=== PATIENT | female | born 1940 | race African-American/Black ===

== ENCOUNTER 2016-07-15 13:38 | Emergency (ER) | payer OTHER, BC ==
--- NOTE | 2016-07-15 15:56 | DIAGNOSTIC IMAGING REPORT ---
PROCEDURE: XR CHEST 2 VIEW INDICATION: COUGH TECHNIQUE: PA and lateral views. COMPARISON: None. 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 Lungs are clear. Heart and mediastinum are normal. Mild to moderate degenerative changes of the thoracic spine. IMPRESSION: 1. Negative chest.
--- NOTE | 2016-07-15 16:10 | DIAGNOSTIC IMAGING REPORT ---
PROCEDURE: XR HIP 2VW W W/O AP PELVIS-LT INDICATION: PAIN IN JOINT TECHNIQUE: AP view of the pelvis and hips with lateral view of the left hip. COMPARISON: None. FINDINGS: LEFT HIP: Osseous structures and joint spaces are normal. PELVIS: Osseous pelvis is normal. There is chondrocalcinosis of the symphysis pubis. Moderate degenerative changes of the lower lumbar spine. IMPRESSION: 1. Negative left hip. 2. Chondrocalcinosis of the symphysis pubis. While this may be normal, consider calcium pyrophosphate deposition disease (e.g., pseudogout). 3. Findings discussed with Dr. Zeus Larsen
--- NOTE | 2016-07-15 17:47 | ED ORDER SUMMARY ---
..... Patient: PEDRO SWANN OrderSheet [facility] VisitID: [id number] [address] [place] [address] 76y, F Registration Date/Time: 07/15/2016 ORDER SHEET Weight: 61.2 kg (stated) Allergies: No Known Drug Allergy GENERAL ORDERS: Chest 2V Urgent (14:37 07/15/2016 Cindy MERCEDES) (Ack 14:45 Cristin) (15:55 DDean R.N.) Hip 2V Left w AP Pelvis Urgent (14:38 07/15/2016 Cindy MERCEDES) (Ack 14:45 Cristin) (15:55 DDean R.N.) MEDICATION ORDERS: Clonidine PO 0.2 mg (NOW) (15:56 07/15/2016 Cindy MERCEDES) (15:59 DDean R.N.) Amoxicillin PO 500 mg (NOW) (20:59 07/15/2016 DDean R.N. per protocol) (21:00 DDean R.N.) IV FLUIDS: ORDER SHEET NOTES: [Electronically signed by Raysa Villalobos R.N. (21:05 07/15/2016)] [Electronically signed by Zeus Larsen MD (21:09 07/19/2016)] [Electronically locked/signed by Raysa Villalobos R.N. (21:05 07/15/2016)]
--- NOTE | 2016-07-15 17:47 | ED NURSING NOTES ---
Clinical Report - Nurses [facility] [address] [place] [address] 07/15/2016 13:45 Patient: PEDRO SWANN TRIAGE Triage time 1353. Acuity: LEVEL 3. Chief Complaint: SHORTNESS OF BREATH. --14:05 Rasya Villalobos R.N. 13:52 07/15/16. BP: 228/78. HR: 94. RR: 22. O2 saturation: 100%. Temp: 97.7 F. Pain level now: 0/10. Additional comments: 228/78 L, 205/73 R . --14:05 Raysa Villalobos R.N. Weight: 61.2 kg stated. Height/Length: 60 inches Per Patient. BMI: 26.4. --13:54 Raysa Villalobos R.N. Medications [facility] . --14:05 Raysa Villalobos R.N. HydrALAZINE HCl Oral (Tablet 25 mg) 1 tablet, QID pen BP . Lasix Oral 20 mg, daily. Losartan Potassium Oral 100 mg, daily. MetFORMIN HCl Oral 500 mg 1/2 tab , BiD. Naproxen Oral 500 mg, 2x a day. Premarin Oral 0.625 mg, daily. Simvastatin Oral 20 mg, at bedtime. --14:38 Raysa Villalobos R.N. Symbicort Inhalation (Aerosol 80-4.5 mcg/act) 1 puff BID . --14:38 Raysa Villalobos R.N. CloNIDine HCl Transdermal (Patch Weekly 0.3 mg/24hr), weekly. --14:38 Raysa Villalobos R.N. Glipizide Oral 2.5mg , am. --14:39 Raysa Villalobos R.N. Allergies No Known Drug Allergy. --14:01 Raysa Villalobos R.N. History Arrived by private vehicle. Historian: patient. Accompanied by family. 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 Onset. (1-2 weeks). She has had fever and a cough. ( had problems with vomiting and diarrhea last week . Pt also has left hip pain after sliding off of bed and landing on the floor last week. walking with limp). No chest pain. PAST MEDICAL HX: Hypertension. ( heart problems). SURGERY HX: Adenoidectomy. Had hysterectomy. Sinus surgery. Tonsillectomy. ( eye surgery recently left eye). SOCIAL HX: Never smoker. No alcohol use or drug use. --14:05 Raysa Villalobos R.N. Interventions ID band on patient. To treatment room. --14:05 Raysa Villalobos R.N. PHYSICAL ASSESSMENT 13:58. Ambulatory to room. Patient gowned. GENERAL / NEURO / PSYCH: Alert. Oriented X 4. Appears in no acute distress. ( left hip pain, but able to ambulate). RESPIRATORY: No respiratory distress. The patient can speak in full sentences. Cough. Chest nontender. CVS: Capillary refill less than 2 seconds. GI / : Abdomen soft. ( denies nausea or diarrhea recently). SKIN: Skin is warm and dry. --14:07 Raysa Villalobos R.N. NURSING PROGRESS NOTES 13:53. Patient gowned. Head of bed elevated. Reassurance given. Patient identifiers checked. Call light placed in reach. Side rails up. Bed placed in lowest position. Patient ready for evaluation- chart flagged. --14:05 Raysa Villalobos R.N. 14:45. Patient transported to radiology by stretcher with tech. --14:53 Raysa Villalobos R.N. 15:07 07/15/16. Patient returned from radiology by stretcher with tech. --15:07 Raysa Villalobos R.N. ( escorted pt to bathroom, steady on feet. no increase in resp with activity. Roderick well). --15:20 Raysa Villalobos R.N. 15:20 07/15/16. BP: 199/102. HR: 69. RR: 20. O2 saturation: 100% on room air. Temp: deferred. Pain level now: 5/10. Additional comments: hip pain . --15:27 Raysa Villalobos R.N. 15:57 07/15/2016 Clonidine PO Tablets 0.2 mg given. --15:59 Raysa Villalobos R.N. 15:59 07/15/16. BP: 214/69. HR: 73. RR: 18. O2 saturation: 98% on room air. Temp: deferred. Pain level now: 6/10. Additional comments: pain in neck bat base of skull . --16:02 Raysa Villalobos R.N. JOHNNIE COMA SCORE: Johnnie Coma Scale: 15- eyes open spontaneously (4); best verbal response- oriented x 4 (5); best motor response- obeys commands (6). --16:02 Raysa Villalobos R.N. 16:15. ( Pt given sandwich, resting quietly). --16:22 Raysa Villalobos R.N. 16:45 07/15/16. BP: 120/45. HR: 80. RR: 18. O2 saturation: 99% on room air. Temp: deferred. Pain level now: 2/10. Additional comments: resting quitly, states headache better. . --16:50 Raysa Villalobos R.N. 17:35 07/15/2016 Amoxicillin PO Capsules 500 mg given. Allergies verified and confirmed 5 rights. --21:00 Raysa Villalobos R.N. 17:20 pt getting dressed so she can sit with her in next room. --21:05 Raysa Villalobos R.N. DISPOSITION / DISCHARGE 17:35. Condition at departure: improved and stable. No learning barriers present. Discharge instructions provided and reviewed with the patient. Reviewed medication(s) (amoxicillin). Patient verbalized understanding. Written instructions provided in Czech. The patient was discharged home and accompanied by spouse. She left the Emergency Department ambulatory and via private vehicle. Patient driving. --21:03 Raysa Villalobos R.N. 17:45 07/15/16. BP: 126/62. HR: 78. RR: 18. O2 saturation: 100%. Temp: deferred. Pain level now: 0/10. --21:03 Raysa Villalobos R.N. Locked/Released at 07/15/2016 21:05 by WilfredoRaysa R.N.
--- NOTE | 2016-07-15 17:47 | ED CLINICAL REPORT ---
Clinical Report - Physicians/Mid Levels [facility] [address] [place] [address] 07/15/2016 13:45 Patient: PEDRO SWANN Time Seen: 14:11. Arrived- By private vehicle. Historian- patient. History limited by vague historian. HISTORY OF PRESENT ILLNESS Chief Complaint: "FLU". This started about 2 weeks ago and is still present. It was gradual in onset and has been constant and waxing/waning. The illness is described as moderate. The patient has had a cough, nasal congestion, chills, muscle aches and a nasal discharge. She has had scant amounts of thick, yellow sputum. No difficulty breathing, chest discomfort or pain, fever or sore throat. No hoarseness. Additional history - The patient has had contact with a sick spouse. They have had similar symptoms. REVIEW OF SYSTEMS The patient has had chills, muscle aches and fatigue. No fever, sweats, decreased vision, calf pain or chest pain. No pedal edema, palpitations, abdominal pain, constipation or diarrhea. No nausea, vomiting, urinary problems or headache. She says that her clonidine patches are normally changed on Sundays and she hasn't done it yet this week. All systems otherwise negative, except as recorded above. SOCIAL HISTORY Never smoker. No alcohol use or drug use. Resides in a house. She lives with spouse. Has good social support. FAMILY HISTORY Denies family medical history. ADDITIONAL NOTES The nursing notes have been reviewed. PHYSICAL EXAM Vital Signs: 07/15/2016 13:52 BP: 228/78. HR: 94. RR: 22. O2 saturation: 100%. Temp: 97.7 F. Pain level now: 0/10. Have been reviewed. Appearance: Alert. Eyes: Pupils equal, round and reactive to light. ENT: Ears normal. Nose normal. Pharynx normal. Uvula midline. Neck: Normal inspection. Neck supple. CVS: Normal heart rate and rhythm. Heart sounds normal. Respiratory: No respiratory distress. (rattle over large airways that clears with cough). Abdomen: Soft and nontender. No organomegaly. Back: Normal inspection. Skin: Skin warm and dry. Normal skin color. Normal skin turgor. Extremities: Extremities exhibit normal ROM. No calf tenderness. No lower extremity edema. LABS, X-RAYS, AND EKG Chest X-ray: No acute disease. The X-rays were interpreted by the radiologist and contemporaneously by me. Lt Hip X-ray: (IMPRESSION: 1. Negative left hip. 2. Chondrocalcinosis of the symphysis pubis. While this may be normal, consider calcium pyrophosphate deposition disease (e.g., pseudogout).). The X-rays were interpreted contemporaneously by me and discussed with the radiologist. PROGRESS AND PROCEDURES Course of Care: Patient is stable. Patient/family counseled. Old medical records ordered. Old records unavailable. Disposition: Discharged. Condition: stable. CLINICAL IMPRESSION Chronic left hip pain. Bronchitis. Hypertension. INSTRUCTIONS Drink plenty of fluids. Warnings: Further evaluation is necessary. GENERAL WARNINGS: Return or contact your physician immediately if your condition worsens or changes unexpectedly, if not improving as expected, or if other problems arise. Your Current Medications: CONTINUE TAKING THE FOLLOWING MEDICATIONS: CloNIDine HCl Transdermal : Patch Weekly 0.3 mg/24hr, weekly. Glipizide Oral : 2.5mg am. HydrALAZINE HCl Oral : Tablet 25 mg, 1 tablet QID pen BP. Lasix Oral : 20 mg daily. Losartan Potassium Oral : 100 mg daily. MetFORMIN HCl Oral : 500 mg 1/2 tab BiD. Naproxen Oral : 500 mg 2x a day. Premarin Oral : 0.625 mg daily. Simvastatin Oral : 20 mg at bedtime. Symbicort Inhalation : Aerosol 80-4.5 mcg/act, 1 puff BID. Prescription Medications: Amoxicillin 500 mg tablets: Take 1 orally every 8 hours for 10 days. Dispense thirty (30). No refills. OTC Medications: Motrin (available over the counter): take according to label instructions. Follow-up: Follow up with your doctor in three days. Call for the next available appointment. Understanding of the discharge instructions verbalized by patient and family. (Electronically signed by Zeus Larsen MD 07/19/2016 21:09)
--- NOTE | 2016-07-15 17:47 | ED ORDER SUMMARY ---
..... Patient: PEDRO SWANN OrderSheet [facility] VisitID: [id number] [address] [place] [address] 76y, F Registration Date/Time: 07/15/2016 ORDER SHEET Weight: 61.2 kg (stated) Allergies: No Known Drug Allergy GENERAL ORDERS: Chest 2V Urgent (14:37 07/15/2016 Cindy MERCEDES) (Ack 14:45 Cristin) (15:55 DDean R.N.) Hip 2V Left w AP Pelvis Urgent (14:38 07/15/2016 Cindy MERCEDES) (Ack 14:45 Cristin) (15:55 DDean R.N.) MEDICATION ORDERS: Clonidine PO 0.2 mg (NOW) (15:56 07/15/2016 Cindy MERCEDES) (15:59 DDean R.N.) Amoxicillin PO 500 mg (NOW) (20:59 07/15/2016 DDean R.N. per protocol) (21:00 DDean R.N.) IV FLUIDS: ORDER SHEET NOTES: [Electronically signed by Raysa Villalobos R.N. (21:05 07/15/2016)] [Electronically signed by Zeus Larsen MD (21:09 07/19/2016)] [Electronically locked/signed by Raysa Villalobos R.N. (21:05 07/15/2016)]
--- NOTE | 2016-07-15 17:47 | ED NURSING NOTES ---
Clinical Report - Nurses [facility] [address] [place] [address] 07/15/2016 13:45 Patient: PEDRO SWANN TRIAGE Triage time 1353. Acuity: LEVEL 3. Chief Complaint: SHORTNESS OF BREATH. --14:05 Raysa Villalobos R.N. 13:52 07/15/16. BP: 228/78. HR: 94. RR: 22. O2 saturation: 100%. Temp: 97.7 F. Pain level now: 0/10. Additional comments: 228/78 L, 205/73 R . --14:05 Raysa Villalobos R.N. Weight: 61.2 kg stated. Height/Length: 60 inches Per Patient. BMI: 26.4. --13:54 Raysa Villalobos R.N. Medications [facility] . --14:05 Raysa Villalobos R.N. HydrALAZINE HCl Oral (Tablet 25 mg) 1 tablet, QID pen BP . Lasix Oral 20 mg, daily. Losartan Potassium Oral 100 mg, daily. MetFORMIN HCl Oral 500 mg 1/2 tab , BiD. Naproxen Oral 500 mg, 2x a day. Premarin Oral 0.625 mg, daily. Simvastatin Oral 20 mg, at bedtime. --14:38 Raysa Villalobos R.N. Symbicort Inhalation (Aerosol 80-4.5 mcg/act) 1 puff BID . --14:38 Raysa Villalobos R.N. CloNIDine HCl Transdermal (Patch Weekly 0.3 mg/24hr), weekly. --14:38 Raysa Villalobos R.N. Glipizide Oral 2.5mg , am. --14:39 Raysa Villalobos R.N. Allergies No Known Drug Allergy. --14:01 Raysa Villalobos R.N. History Arrived by private vehicle. Historian: patient. Accompanied by family. 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 Onset. (1-2 weeks). She has had fever and a cough. ( had problems with vomiting and diarrhea last week . Pt also has left hip pain after sliding off of bed and landing on the floor last week. walking with limp). No chest pain. PAST MEDICAL HX: Hypertension. ( heart problems). SURGERY HX: Adenoidectomy. Had hysterectomy. Sinus surgery. Tonsillectomy. ( eye surgery recently left eye). SOCIAL HX: Never smoker. No alcohol use or drug use. --14:05 Raysa Villalobos R.N. Interventions ID band on patient. To treatment room. --14:05 Raysa Villalobos R.N. PHYSICAL ASSESSMENT 13:58. Ambulatory to room. Patient gowned. GENERAL / NEURO / PSYCH: Alert. Oriented X 4. Appears in no acute distress. ( left hip pain, but able to ambulate). RESPIRATORY: No respiratory distress. The patient can speak in full sentences. Cough. Chest nontender. CVS: Capillary refill less than 2 seconds. GI / : Abdomen soft. ( denies nausea or diarrhea recently). SKIN: Skin is warm and dry. --14:07 Raysa Villalobos R.N. NURSING PROGRESS NOTES 13:53. Patient gowned. Head of bed elevated. Reassurance given. Patient identifiers checked. Call light placed in reach. Side rails up. Bed placed in lowest position. Patient ready for evaluation- chart flagged. --14:05 Raysa Villalobos R.N. 14:45. Patient transported to radiology by stretcher with tech. --14:53 Raysa Villalobos R.N. 15:07 07/15/16. Patient returned from radiology by stretcher with tech. --15:07 Raysa Villalobos R.N. ( escorted pt to bathroom, steady on feet. no increase in resp with activity. Roderick well). --15:20 Raysa Villalobos R.N. 15:20 07/15/16. BP: 199/102. HR: 69. RR: 20. O2 saturation: 100% on room air. Temp: deferred. Pain level now: 5/10. Additional comments: hip pain . --15:27 Raysa Villalobos R.N. 15:57 07/15/2016 Clonidine PO Tablets 0.2 mg given. --15:59 Raysa Villalobos R.N. 15:59 07/15/16. BP: 214/69. HR: 73. RR: 18. O2 saturation: 98% on room air. Temp: deferred. Pain level now: 6/10. Additional comments: pain in neck bat base of skull . --16:02 Raysa Villalobos R.N. JOHNNIE COMA SCORE: Johnnie Coma Scale: 15- eyes open spontaneously (4); best verbal response- oriented x 4 (5); best motor response- obeys commands (6). --16:02 Raysa Villalobos R.N. 16:15. ( Pt given sandwich, resting quietly). --16:22 Raysa Villalobos R.N. 16:45 07/15/16. BP: 120/45. HR: 80. RR: 18. O2 saturation: 99% on room air. Temp: deferred. Pain level now: 2/10. Additional comments: resting quitly, states headache better. . --16:50 Raysa Villalobos R.N. 17:35 07/15/2016 Amoxicillin PO Capsules 500 mg given. Allergies verified and confirmed 5 rights. --21:00 Raysa Villalobos R.N. 17:20 pt getting dressed so she can sit with her in next room. --21:05 Raysa Villalobos R.N. DISPOSITION / DISCHARGE 17:35. Condition at departure: improved and stable. No learning barriers present. Discharge instructions provided and reviewed with the patient. Reviewed medication(s) (amoxicillin). Patient verbalized understanding. Written instructions provided in Setswana. The patient was discharged home and accompanied by spouse. She left the Emergency Department ambulatory and via private vehicle. Patient driving. --21:03 Raysa Villalobos R.N. 17:45 07/15/16. BP: 126/62. HR: 78. RR: 18. O2 saturation: 100%. Temp: deferred. Pain level now: 0/10. --21:03 Raysa Villalobos R.N. Locked/Released at 07/15/2016 21:05 by WilfredoRaysa R.N.
--- NOTE | 2016-07-19 21:09 | ED MAR SUMMARY ---
..... Medication Administration [facility] [address] [place] [address] Patient: PEDRO SWANN Visit ID: [id number] 76y, F Weight: 61.2 kg Height/Length: 60 in BMI: 26.4 ALLERGIES: No Known Drug Allergy Given 15:57 07/15/2016 Raysa Villalobos, R.N. Medication Administered: CLONIDINE [PO], Dose: 0.2 mg Tablets PO. Medication Ordered: Clonidine PO 0.2 mg (NOW). Given 17:35 07/15/2016 Raysa Villalobos, R.N. Medication Administered: AMOXICILLIN [PO], Dose: 500 mg Capsules PO. Medication Ordered: Amoxicillin PO 500 mg (NOW).
--- NOTE | 2016-07-19 21:09 | ED MED RECONCILIATION SUMMARY ---
Patient: PEDRO SWANN Medication Reconciliation Report [facility] VisitID: [id number] [address] [place] [address] 76y, F Registration Date/Time: 07/15/2016 Weight: 61.2 kg Height/Length: 60 in. BMI: 26.4 ALLERGIES: No Known Drug Allergy The patient's Home Medications are listed below: CONTINUE TAKING THE FOLLOWING MEDICATIONS: CloNIDine HCl Transdermal (0.3 mg/24hr), weekly Glipizide Oral 2.5mg , am HydrALAZINE HCl Oral (25 mg) 1 tablet, QID pen BP Lasix Oral 20 mg, daily Losartan Potassium Oral 100 mg, daily MetFORMIN HCl Oral 500 mg 1/2 tab , BiD Naproxen Oral 500 mg, 2x a day Premarin Oral 0.625 mg, daily Simvastatin Oral 20 mg, at bedtime Symbicort Inhalation (80-4.5 mcg/act) 1 puff BID THE FOLLOWING MEDICATIONS NEED TO BE RECONCILED: [facility] The source(s) of the original Home Medication information: Not obtained. The following Medications were given to the patient in the Emergency Department: Clonidine [PO] PO 0.2 mg, administered: 07/15/2016 3:57:00 PM Amoxicillin [PO] PO 500 mg, administered: 07/15/2016 5:35:00 PM The following Medications were prescribed to the patient: Motrin (available over the counter): take according to label instructions. -- Zeus Larsen MD Amoxicillin 500 mg tablets: Take 1 orally every 8 hours for 10 days. Dispense thirty (30). No refills. -- Zeus Larsen MD
--- NOTE | 2016-07-19 21:09 | ED MED RECONCILIATION SUMMARY ---
Patient: PEDRO SWANN Medication Reconciliation Report [facility] VisitID: [id number] [address] [place] [address] 76y, F Registration Date/Time: 07/15/2016 Weight: 61.2 kg Height/Length: 60 in. BMI: 26.4 ALLERGIES: No Known Drug Allergy The patient's Home Medications are listed below: CONTINUE TAKING THE FOLLOWING MEDICATIONS: CloNIDine HCl Transdermal (0.3 mg/24hr), weekly Glipizide Oral 2.5mg , am HydrALAZINE HCl Oral (25 mg) 1 tablet, QID pen BP Lasix Oral 20 mg, daily Losartan Potassium Oral 100 mg, daily MetFORMIN HCl Oral 500 mg 1/2 tab , BiD Naproxen Oral 500 mg, 2x a day Premarin Oral 0.625 mg, daily Simvastatin Oral 20 mg, at bedtime Symbicort Inhalation (80-4.5 mcg/act) 1 puff BID THE FOLLOWING MEDICATIONS NEED TO BE RECONCILED: [facility] The source(s) of the original Home Medication information: Not obtained. The following Medications were given to the patient in the Emergency Department: Clonidine [PO] PO 0.2 mg, administered: 07/15/2016 3:57:00 PM Amoxicillin [PO] PO 500 mg, administered: 07/15/2016 5:35:00 PM The following Medications were prescribed to the patient: Motrin (available over the counter): take according to label instructions. -- Zeus Larsen MD Amoxicillin 500 mg tablets: Take 1 orally every 8 hours for 10 days. Dispense thirty (30). No refills. -- Zeus Larsen MD
--- NOTE | 2016-07-19 21:09 | ED DISCHARGE INSTRUCTIONS ---
Patient: PEDRO SWANN General Instructions [facility] VisitID: [id number] [place] [address] 76y, F Registration Date/Time: 07/15/2016 Chronic left hip pain. Bronchitis. Hypertension. INSTRUCTIONS Drink plenty of fluids. Warnings: Further evaluation is necessary. GENERAL WARNINGS: Return or contact your physician immediately if your condition worsens or changes unexpectedly, if not improving as expected, or if other problems arise. Your Current Medications: CONTINUE TAKING THE FOLLOWING MEDICATIONS: CloNIDine HCl Transdermal : Patch Weekly 0.3 mg/24hr, weekly. Glipizide Oral : 2.5mg am. HydrALAZINE HCl Oral : Tablet 25 mg, 1 tablet QID pen BP. Lasix Oral : 20 mg daily. Losartan Potassium Oral : 100 mg daily. MetFORMIN HCl Oral : 500 mg 1/2 tab BiD. Naproxen Oral : 500 mg 2x a day. Premarin Oral : 0.625 mg daily. Simvastatin Oral : 20 mg at bedtime. Symbicort Inhalation : Aerosol 80-4.5 mcg/act, 1 puff BID. Prescription Medications: Amoxicillin 500 mg tablets: Take 1 orally every 8 hours for 10 days. Dispense thirty (30). No refills. OTC Medications: Motrin (available over the counter): take according to label instructions. Follow-up: Follow up with your doctor in three days. Call for the next available appointment. Understanding of the discharge instructions verbalized by patient and family. ADDITIONAL INFORMATION Bronchitis (Adult: Abx Tx) BRONCHITIS is an infection of the air passages (bronchial tubes). It often occurs during the common cold. Symptoms include cough with mucus (phlegm) and low-grade fever. Bronchitis usually lasts 7-14 days. Mild cases can be treated with simple home remedies. More severe infection is treated with an antibiotic. Home Care: If symptoms are severe, rest at home for the first 2-3 days. When you resume activity, don't let yourself get too tired. Do not smoke. Avoid being exposed to the smoke of others. You may use acetaminophen (Tylenol) or ibuprofen (Motrin, Advil) to control fever or pain, unless another medicine was prescribed for this. [NOTE: If you have chronic liver or kidney disease or ever had a stomach ulcer or GI bleeding, talk with your doctor before using these medicines.] Your appetite may be poor, so a light diet is fine. Avoid dehydration by drinking 6-8 glasses of fluids per day (water, soft, drinks, juices, tea, soup, etc.). Extra fluids will help loosen secretions in the lungs. Qdpv-yda-iubbdrs cough medicines that containdextromethorphan(such as Robitussin DM) and decongestants (Actifed or Sudafed) may help relieve cough and congestion. [NOTE: Do not use decongestants if you have high blood pressure.] Finish all antibiotic medicine, even if you are feeling better after only a few days. Follow Up with your doctor or as directed if you dont start to feel better after three days. [NOTE: If you are age 65 or older, or if you have chronic asthma or COPD, we recommend a PNEUMOCOCCAL VACCINATION every five years and a yearly INFLUENZAVACCINATION (FLU-SHOT) every . Ask your doctor about this. If you had an X-ray, a radiologist will review it. You will be notified of any new findings that may affect your care.] Get Prompt Medical Attention if any of the following occur: Fever over 100.4F (38.0C) for more than three days Trouble breathing, wheezing or pain with breathing Coughing up blood or increased amounts of colored sputum Weakness, drowsiness, headache, facial pain, ear pain or a stiff neck Hypertension, Out Of Control (Established) Your blood pressure was unusually high today. This can occur as a result of missing doses of your blood pressure medicine. Some asthma inhalers, decongestants, diet pills, and street drugs such as cocaine and amphetamine can worsen hypertension. An increase in body weight, increase in salt intake, smoking, and caffeine are other causes. Emotional upset or acute pain can cause a sudden rapid rise in blood pressure which may return to normal after a period of rest. A normal blood pressure is less than 140/90. The first (top) number is the systolic pressure. The second (bottom) number is the diastolic pressure. Hypertension exists when either the top number is 140 or higher, OR the bottom number is 90 or higher on repeated measurements. Home Care: All patients with high blood pressure should do the following to lower their pressure. If you are on blood pressure medicines, then these methods may reduce or eliminate your need for medicines in the future. Begin a weight-loss program if you are overweight. Reduce your salt intake. Avoid high-salt foods (olives, pickles, smoked meats, salted potato chips, etc.). Do not add salt to your food at the table. Use only small amounts of salt when cooking. Begin an exercise program. Discuss with your doctor what type of exercise program would be best for you. It doesnt have to be difficult. Even brisk walking for 20 minutes3 times a week is a good form of exercise. Avoid medicines which contain heart stimulants. This includes many cold and sinus decongestant pills and sprays as well as diet pills. Check the warnings about hypertension on the label. Stimulants such as amphetamine or cocaine could be lethal for someone with hypertension. Never take these. Limit your caffeine intake or switch to decaf. Stop smoking. If you are a long-time smoker, this can be hard. Enroll in a stop-smoking program to improve your chance of success. Talk to your physician about ways to improve your chance of success. Learning how to handle stress better is an important part of any program to lower blood pressure. Learn about relaxation methods such as meditation, yoga, or biofeedback. If medicines were prescribed, take them exactly as directed. Missing doses may cause your blood pressure to get out of control. Consider buying an automatic blood pressure machine (available at many pharmacies). Use this to monitor your blood pressure and report to your doctor. Follow Up: Regular visits to your own doctor for blood pressure checks and medicine adjustment is an important part of your care. Make a follow-up appointment as directed by our staff. Get Prompt Medical Attention if any of the following occur: Chest, arm, shoulder, neck, or upper back pain Shortness of breath Severe headache Throbbing or rushing sound in the ears Nosebleed Extreme drowsiness, confusion, or fainting Dizziness or vertigo (dizziness with spinning sensation) Weakness of an arm or leg or one side of the face Difficulty with speech or vision Amoxicillin Trihydrate Oral tablet What is this medicine? AMOXICILLIN (a mox i STEFANIE in) is a penicillin antibiotic. It is used to treat certain kinds of bacterial infections. It will not work for colds, flu, or other viral infections. How should I use this medicine? Take this medicine by mouth with a glass of water. Follow the directions on your prescription label. You may take this medicine with food or on an empty stomach. Take your medicine at regular intervals. Do not take your medicine more often than directed. Take all of your medicine as directed even if you think your are better. Do not skip doses or stop your medicine early. Talk to your human resources operations coordinator regarding the use of this medicine in children. While this drug may be prescribed for selected conditions, precautions do apply. What side effects may I notice from receiving this medicine? Side effects that you should report to your doctor or health home health care respiratory therapist as soon as possible: allergic reactions like skin rash, itching or hives, swelling of the face, lips, or tongue breathing problems dark urine redness, blistering, peeling or loosening of the skin, including inside the mouth seizures severe or watery diarrhea trouble passing urine or change in the amount of urine unusual bleeding or bruising unusually weak or tired yellowing of the eyes or skin Side effects that usually do not require medical attention (report to your doctor or health home health care respiratory therapist if they continue or are bothersome): dizziness headache stomach upset trouble sleeping What may interact with this medicine? amiloride control pills chloramphenicol macrolides probenecid sulfonamides tetracyclines What if I miss a dose? If you miss a dose, take it as soon as you can. If it is almost time for your next dose, take only that dose. Do not take double or extra doses. Where should I keep my medicine? Keep out of the reach of children. Store between 68 and 77 degrees F (20 and 25 degrees C). Keep bottle closed tightly. Throw away any unused medicine after the expiration date. What should I tell my health care provider before I take this medicine? They need to know if you have any of these conditions: asthma kidney disease an unusual or allergic reaction to amoxicillin, other penicillins, cephalosporin antibiotics, other medicines, foods, dyes, or preservatives or trying to get breast-feeding What should I watch for while using this medicine? Tell your doctor or health home health care respiratory therapist if your symptoms do not improve in 2 or 3 days. Take all of the doses of your medicine as directed. Do not skip doses or stop your medicine early. If you are diabetic, you may get a false positive result for sugar in your urine with certain brands of urine tests. Check with your doctor. Do not treat diarrhea with [id number]-krnflcj products. Contact your doctor if you have diarrhea that lasts more than 2 days or if the diarrhea is severe and watery. Ibuprofen Oral tablet What is this medicine? IBUPROFEN (eye BYOO proe fen) is a non-steroidal anti-inflammatory drug (NSAID). It is used for dental pain, fever, headaches or migraines, osteoarthritis, rheumatoid arthritis, or painful monthly periods. It can also relieve minor aches and pains caused by a cold, flu, or sore throat. How should I use this medicine? Take this medicine by mouth with a glass of water. Follow the directions on the prescription label. Take this medicine with food if your stomach gets upset. Try to not lie down for at least 10 minutes after you take the medicine. Take your medicine at regular intervals. Do not take your medicine more often than directed. A special MedGuide will be given to you by the pharmacist with each prescription and refill. Be sure to read this information carefully each time. Talk to your human resources operations coordinator regarding the use of this medicine in children. Special care may be needed. What side effects may I notice from receiving this medicine? Side effects that you should report to your doctor or health home health care respiratory therapist as soon as possible: allergic reactions like skin rash, itching or hives, swelling of the face, lips, or tongue black or bloody stools, blood in the urine or in vomit breathing problems changes in vision chest pain general ill feeling or flu-like symptoms nausea or vomiting redness, blistering, peeling or loosening of the skin, including inside the mouth slurred speech or weakness on one side of the body stomach pain unexplained weight gain or swelling unusually weak or tired yellowing of eyes or skin Side effects that usually do not require medical attention (report to your doctor or health home health care respiratory therapist if they continue or are bothersome): constipation or diarrhea dizziness gas or heartburn stomach upset What may interact with this medicine? Do not take this medicine with any of the following medications: cidofovir ketorolac methotrexate pemetrexed This medicine may also interact with the following medications: alcohol aspirin diuretics lithium other drugs for inflammation like prednisone warfarin What if I miss a dose? If you miss a dose, take it as soon as you can. If it is almost time for your next dose, take only that dose. Do not take double or extra doses. Where should I keep my medicine? Keep out of the reach of children. Store at room temperature between 15 and 30 degrees C (59 and 86 degrees F). Keep container tightly closed. Throw away any unused medicine after the expiration date. What should I tell my health care provider before I take this medicine? They need to know if you have any of these conditions: asthma cigarette smoker drink more than 3 alcohol containing drinks a day heart disease or circulation problems such as heart failure or leg edema (fluid retention) high blood pressure kidney disease liver disease stomach bleeding or ulcers an unusual or allergic reaction to ibuprofen, aspirin, other NSAIDS, other medicines, foods, dyes, or preservatives or trying to get breast-feeding What should I watch for while using this medicine? Tell your doctor or healthcare professional if your symptoms do not start to get better or if they get worse. This medicine does not prevent heart attack or stroke. In fact, this medicine may increase the chance of a heart attack or stroke. The chance may increase with longer use of this medicine and in people who have heart disease. If you take aspirin to prevent heart attack or stroke, talk with your doctor or health home health care respiratory therapist. Do not take other medicines that contain aspirin, ibuprofen, or naproxen with this medicine. Side effects such as stomach upset, nausea, or ulcers may be more likely to occur. Many medicines available without a prescription should not be taken with this medicine. This medicine can cause ulcers and bleeding in the stomach and intestines at any time during treatment. Ulcers and bleeding can happen without warning symptoms and can cause . To reduce your risk, do not smoke cigarettes or drink alcohol while you are taking this medicine. You may get drowsy or dizzy. Do not drive, use machinery, or do anything that needs mental alertness until you know how this medicine affects you. Do not stand or sit up quickly, especially if you are an older patient. This reduces the risk of dizzy or fainting spells. This medicine can cause you to bleed more easily. Try to avoid damage to your teeth and gums when you brush or floss your teeth. You have been given the following additional information: Bronchitis, Antiobiotic Treatment (Adult) Hypertension, Established, Out Of Control Amoxicillin Trihydrate Oral tablet Ibuprofen Oral tablet (Electronically signed by Zeus Larsen MD 07/19/2016 21:09)
--- NOTE | 2016-07-19 21:09 | ED MAR SUMMARY ---
..... Medication Administration Record [facility] [address] [place] [address] Patient: PEDRO SWANN Visit ID: [id number] 76y, F Weight: 61.2 kg Height/Length: 60 in BMI: 26.4 ALLERGIES: No Known Drug Allergy Given 15:57 07/15/2016 Raysa Villalobos, R.N. Medication Administered: CLONIDINE [PO], Dose: 0.2 mg Tablets PO. Medication Ordered: Clonidine PO 0.2 mg (NOW). Given 17:35 07/15/2016 Raysa Villalobos, R.N. Medication Administered: AMOXICILLIN [PO], Dose: 500 mg Capsules PO. Medication Ordered: Amoxicillin PO 500 mg (NOW).
== END 2016-07-15 17:48 | disposition home or self-care (01) ==
LOC: ED SRH 13:38
DX: J40 Bronchitis, not specified as acute or chronic (principal); M25.552 Pain in left hip; G89.29 Other chronic pain; I10 Essential (primary) hypertension